=== PATIENT | male | born 1950 | race African-American/Black ===

== ENCOUNTER 2019-11-23 21:34 | Emergency (ER) | payer OTHER ==
[~2019-11-23] VITALS: Ht 190.5 cm; Wt 86.2 kg
[2019-11-23 22:55] LABS: RDW 14.3 % (10.5-14.5)
[2019-11-23 22:57] LABS: HEMATOCRIT 43.3 % (42.0-52.0); HEMOGLOBIN 13.4 gm/dL (14.0-18.0); MCH 23.1 pg (26.0-34.0); MCV 74.4 fL (80.0-100.0); RBC 5.82 mil/uL (4.50-6.00); WBC 15.8 thou/uL (4.0-11.0)
[2019-11-23 23:38] LABS: ANION GAP 13 mmol/L (7-16); BUN 14 mg/dL (7-18); CALCIUM 9.3 mg/dL (8.5-10.1); CHLORIDE 98 mmol/L (98-107); CO2 26 mmol/L (21-32); CREATININE 1.2 mg/dL (0.7-1.3); GLUCOSE 310 mg/dL (74-106); POTASSIUM 4.3 mmol/L (3.5-5.1); SODIUM 137 mmol/L (136-145)
[2019-11-23 23:47] LABS: MAGNESIUM 1.7 mg/dL (1.8-2.4); TROPONIN-I <0.06 ng/mL (<0.06)
[2019-11-24 01:17] LABS: URINE BILIRUBIN NEGATIVE (Negative); URINE BLOOD NEGATIVE (Negative); URINE CLARITY CLEAR; URINE COLOR YELLOW; URINE GLUCOSE-RANDOM* 3+ (Negative); URINE KETONES NEGATIVE (Negative); URINE LEUKOCYTES-REFLEX NEGATIVE (Negative); URINE NITRITE-REFLEX NEGATIVE (Negative); URINE PROTEIN (DIPSTICK) 1+ (Negative); URINE UROBILINOGEN 0.2 E.U./dl (0.2-1.0)
[2019-11-24 01:29] LABS: BACTERIA-REFLEX 1-9 Few /HPF (None Seen); CASTS None Seen /LPF (None Seen); CRYSTALS None Seen /LPF (None Seen); MUCUS 0-3 Light strn/LPF (None Seen); SQUAMOUS 4-10 Moderate /LPF (0-3); URINE RBC 0-2 Rare /HPF (0-2); URINE WBC-REFLEX 0-5 Rare /HPF (0-5)
[2019-11-24] MEDS ORDERED: MECLIZINE HCL25 M1 PO (01:37)
[2019-11-24 01:44] VITALS: BP 169/90
[2019-11-24] MEDS ORDERED: ZOFRAN ODT4 MG PO (09:05)
--- NOTE | 2019-11-24 09:59 | EKG ---
[facility] [place] [address] ELECTROCARDIOGRAM REPORT Name: CRISTINO PARSONS Room #: DEP [facility]#: [id number] Admission: 11/23/19 Attend Phys: Discharge: 11/24/19 Date of : 48 Report #: [id number] THIS REPORT FOR: cc: [facility] - Clinic physician unknown [facility] - Clinic physician unknown Shaun Cooley MD [facility] ~ THIS REPORT FOR: //name// [facility] ED Test Date: 2019-11-23 Test Time: 22:28:59 Pat Name: CRISTINO PARSONS Department: Room: 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: [facility] : 1950 Requested By: Iam Arceo Order Number: [id number] MD: Shaun Cooley Measurements Intervals [place] Rate: 80 P: 55 AL: 210 QRS: 1 QRSD: 94 T: 61 QT: 383 QTc: 442 Interpretive Statements Sinus rhythm with first-degree AV block Multiple ventricular premature complexes Probable left atrial enlargement No previous ECG available for comparison Electronically Signed On 11-24-2019 9:59:29 CDT by Shaun Cooley [email or web address] <ELECTRONICALLY SIGNED> By: Shaun Cooley MD, FAC 11/24/19 0959 27 27 Shaun Cooley MD, [facility] /EPI
== END 2019-11-24 01:48 | disposition home or self-care (01) ==
LOC: ER 21:34
PROVIDERS: Emergency Medicine
DX: R53.1 Weakness (principal); R42 Dizziness and giddiness; R19.7 Diarrhea, unspecified; R11.2 Nausea with vomiting, unspecified; Z87.891 Personal history of nicotine dependence

== ENCOUNTER 2019-11-24 07:31 | Emergency (ER) | payer OTHER ==
[~2019-11-24] VITALS: Ht 190.5 cm; Wt 89.4 kg
[~2019-11-24 07:31] MED LIST: MECLIZINE HCL25 M1 PO
[2019-11-24] MEDS ORDERED: ZOFRAN ODT4 MG PO (09:05)
[2019-11-24 09:21] VITALS: BP 155/89
--- NOTE | 2019-11-24 10:01 | EKG ---
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: [facility] [place] : 1950 Requested By: Leona Stafford Order Number: [id number] MD: Shaun Cooley Measurements Intervals [place] Rate: 69 P: 42 SC: 208 QRS: 5 QRSD: 90 T: 58 QT: 398 QTc: 427 Interpretive Statements Sinus rhythm Poor R wave progression Compared to ECG 11/23/2019 22:28:59 Ventricular premature complex(es) no longer present Electronically Signed On 11-24-2019 10:01:09 CDT by Shaun Cooley [email or web address] <ELECTRONICALLY SIGNED> By: Shaun Cooley MD, FACC 11/24/19 1001 6 6 Shaun Cooley MD, [facility] /EPI
== END 2019-11-24 09:21 | disposition home or self-care (01) ==
LOC: ER 07:31
DX: R42 Dizziness and giddiness (principal); R11.2 Nausea with vomiting, unspecified; Z79.899 Other long term (current) drug therapy; Z87.891 Personal history of nicotine dependence

== ENCOUNTER 2021-03-03 08:34 | Emergency (ER) | payer OTHER ==
[~2021-03-03] VITALS: Ht 190.5 cm; Wt 90.7 kg
[~2021-03-03 08:34] MED LIST changes: +ZOFRAN ODT4 MG PO
[2021-03-03 08:35] VITALS: BP 137/68
[2021-03-03] MEDS ORDERED: NAPROSYN500 MG PO (08:53)
[2021-03-03] MEDS ORDERED: PREDNISONE 20 M20 MG PO (08:53)
== END 2021-03-03 09:00 | disposition home or self-care (01) ==
LOC: ER 08:34
DX: M54.41 Lumbago with sciatica, right side (principal); I10 Essential (primary) hypertension; Z87.891 Personal history of nicotine dependence

== ENCOUNTER 2021-03-09 10:04 | Emergency (ER) | payer OTHER ==
[~2021-03-09] VITALS: Ht 190.5 cm; Wt 93.0 kg
[~2021-03-09 10:04] MED LIST changes: +NAPROSYN500 MG PO; +PREDNISONE 20 M20 MG PO
[2021-03-09 10:05] VITALS: BP 132/75
[2021-03-09] MEDS ORDERED: NAPROSYN500 MG PO (10:15)
[2021-03-09] MEDS ORDERED: PREDNISONE 20 M20 MG PO (10:15)
== END 2021-03-09 10:15 | disposition home or self-care (01) ==
LOC: ER 10:04
DX: M13.851 Other specified arthritis, right hip (principal); M54.31 Sciatica, right side; I10 Essential (primary) hypertension; F17.210 Nicotine dependence, cigarettes, uncomplicated; Z76.0 Encounter for issue of repeat prescription

== ENCOUNTER 2021-03-23 02:01 | Emergency (ER) | payer OTHER ==
[~2021-03-23] VITALS: Ht 190.5 cm; Wt 97.5 kg
[2021-03-23] MEDS ORDERED: VALIUM2 MG PO (05:08)
[2021-03-23] MEDS ORDERED: NAPROSYN500 MG PO (05:08)
[2021-03-23 05:28] VITALS: BP 142/57
== END 2021-03-23 05:29 | disposition home or self-care (01) ==
LOC: ER 02:01
DX: M54.41 Lumbago with sciatica, right side (principal); I10 Essential (primary) hypertension; Z79.899 Other long term (current) drug therapy; Z87.891 Personal history of nicotine dependence